=== PATIENT | female | born 1990 | race Caucasian/White ===

== ENCOUNTER 2022-04-05 19:07 | Outpatient (CLI) | payer OTHER, SELFPAY ==
[2022-04-05 21:38] LABS: Albumin* 4.9 g/dL (3.3-5.0); Chloride* 105 mmol/L (96-114)
[2022-04-05 21:39] LABS: Potassium* 3.9 mmol/L (3.6-5.1); Sodium* 141 mmol/L (135-149)
[2022-04-05 21:41] LABS: Bilirubin Total* 0.8 mg/dL (0.1-1.5); Creatinine* 0.8 mg/dL (0.5-1.5); Estimated Glomerular Filt Rate 102 ml/min
[2022-04-05 21:42] LABS: Alanine Aminotransferase* 24 U/L (4-35); Alkaline Phosphatase* 62 U/L (40-150); Aspartate Amino Transferase* 26 U/L (12-35); Blood Urea Nitrogen* 19 mg/dL (5-24); Calcium* 9.9 mg/dL (8.4-10.6); Carbon Dioxide* 28 mmol/L (20-32); Glucose* 82 mg/dL (60-115)
[2022-04-05 21:54] LABS: C Reactive Protein* < 0.5 mg/dL (0.5-1.0)
== END 2022-04-05 19:08 | disposition home or self-care (01) ==
PROVIDERS: PCP Emergency Medicine; Visit Provider Emergency Medicine
DX: R63.0 Anorexia (principal)
CPT/HCPCS: 80053; 84443; 86140

== ENCOUNTER 2022-04-19 18:26 | Outpatient (CLI) | payer OTHER, SELFPAY ==
[2022-04-19 21:57] LABS: Immature Reticulocyte Fraction 6.1 % (3.0-15.9); Reticulocyte Hemoglobin Equivi 34.1 pg (29.0-35.0); Reticulocytes Absolute 0.06 # (0.03-0.08)
[2022-04-22 05:47] LABS: Copper, Serum/Plasma 97.3 ug/dL (80.0-155.0)
[2022-04-22 10:54] LABS: Haptoglobin 78 mg/dL (30-200)
[2022-04-22 16:15] LABS: Prolactin 11.4 ng/mL (2.8-29.2)
--- NOTE | 2022-04-29 09:42 | ONC.NURNOTE ---
Addendum entered by Gaby Crocker, RN 05/03/22 09:46: Called and left message to schedule with patient again. Original Note: Referral was sent by primary care for patient to be seen by Hematology for thrombocytopenia, macrocytic anemia, and anorexia and weight loss. Patient was discussed with Dr. Pineda and she says that if patient is symptomatic, she would need to be seen prior to July/August availability. LMOM for patient to call office yesterday and today to schedule a consultation. Dr. Bae is booked out to June, but due to symptoms patient needs to be seen sooner. Patient to be scheduled on Dr. Nieves's schedule due to availability.
== END 2022-04-19 18:27 | disposition home or self-care (01) ==
PROVIDERS: PCP Emergency Medicine; Visit Provider Emergency Medicine
DX: D53.9 Nutritional anemia, unspecified (principal); N91.2 Amenorrhea, unspecified; R63.0 Anorexia
CPT/HCPCS: 82525; 83010; 83615; 84146; 85045

== ENCOUNTER 2022-05-17 18:02 | Outpatient (CLI) | payer OTHER, SELFPAY ==
--- NOTE | 2022-05-19 12:21 | ONC.NURNOTE ---
Received phone call about this patient yesterday from primary care asking if patient should be seen sooner than the planned 06/23/2022. I talked with Dr. Bae and our director today about this patient.? Dr. Bae sees no urgency to see patient, but recommended the following peripheral blood studies: cytometry BCR/ABL Qualitative test If both of these are negative, then the patient would need a bone marrow biopsy.? I have the order started based on Dr. Bernard recommendations, so we would talk with you once the above tests are completed.? She said she is fine to be seen 06/23/2022. Email was sent to primary care with the above recommendations.
== END 2022-05-17 18:03 | disposition home or self-care (01) ==
LOC: LKVREF 18:03
PROVIDERS: PCP Emergency Medicine; Visit Provider Emergency Medicine
DX: D53.9 Nutritional anemia, unspecified (principal)
CPT/HCPCS: 83516

== ENCOUNTER 2022-05-20 12:51 | Emergency (ER) | payer OTHER, SELFPAY ==
[2022-05-20 13:14] VITALS: BP 121/82; PULSE 70; RESP 20; O2SAT 100; BMI 18.8
[2022-05-20] MEDS: 0.9 % SODIUM CHLORIDE 1000 ml 1,000 ML IV (13:30)
--- NOTE | 2022-05-20 14:15 | ED.GENADULT ---
HPI - General Adult General Chief complaint: Weakness Stated complaint: Nausea, vomiting Time Seen by Provider: 05/20/22 13:15 Source: patient Mode of arrival: EMS Limitations: no limitations History of Present Illness HPI narrative: 31-year-old female coming in today complaining of nausea and vomiting that started approximately 8 hours ago. She states that she has vomited about 8 times and had multiple episodes of watery diarrhea. She states that she has abdominal cramping when she vomits otherwise no continuous abdominal pain. No chest pain. No fevers or chills. She did not go out to eat yesterday. She states that she feels very dehydrated. No sick contacts that she is aware of. No recent traveling. Does not believe she is . Related Data Home Medications Medication Instructions Recorded Confirmed clonazepam 0.5 mg tablet 0.5 mg PO QDAY PRN 04/05/22 05/17/22 hydroxyzine HCl 25 mg tablet 25 mg PO BID PRN 04/05/22 05/17/22 lamotrigine 100 mg tablet 100 mg PO QDAY 04/05/22 05/17/22 (Lamictal) bupropion HCl (smoking deter) 150 300 mg PO QDAY 05/17/22 05/17/22 mg tablet,12 hr sustained-release(smoking deterrent) valacyclovir 1 gram tablet 1,000 mg PO 05/17/22 05/17/22 Previous Rx's Medication Instructions Recorded ondansetron HCl 4 mg tablet 4 mg PO TID PRN nausea and 05/20/22 vomiting #10 tabs Allergies Allergy/AdvReac Type Severity Reaction Status Date / Time No Known Drug Allergies Allergy Verified 05/17/22 17:42 Review of Systems Status of ROS: Reports: 10 or more systems reviewed and unremarkable except as noted in History and below [facility] Medical History Amenorrhea Anorexia Depression Distal radius fracture History of varicella Macrocytic anemia PVC (premature ventricular contraction) Thrombocytopenia Unintentional weight loss Weakness Surgical History H/O cystoscopy Family History Father Bipolar disorder Aunt Bipolar disorder Sister Bipolar disorder Mother Bipolar disorder Paternal Grandfather Bipolar disorder Paternal Grandmother Bipolar disorder Brother Leukemia Social History Smoking Status: Former smoker Do you use any of these nicotine containing products: Vaping Products Second hand tobacco smoke exposure: No How often do you have a drink containing alcohol: never How often do you have six or more drinks on one occasion: Never AUDIT-C Alcohol total score: 0 Non-prescribed substance use: marijuana (any form) service: No Exam Narrative: Exam Narrative: Very thin patient who appears somewhat malnourished and uncomfortable. Alert and oriented x3. Answers questions appropriately. Affect is appropriate patient is tearful.. Thoughts are goal oriented and rational. No tangential or magical thinking noted. Patient speaks in full sentences without needing to catch her breath. HEENT: Normocephalic atraumatic. Pupils are equally round reactive to light. Extraocular muscles are intact. Conjunctivae are moist without any icterus noted. Moist mucous membranes. Posterior pharynx is normal. Neck is soft without any lymphadenopathy or thyromegaly. No masses are appreciated. Cardiovascular: Heart is regular rate and rhythm S1 and S2 are present without any murmurs. Lungs: Clear to auscultation bilaterally no wheezes rhonchi or rales are appreciated. Patient takes deep breaths without any discomfort. Abdomen: Soft and nontender nondistended with normal bowel sounds. No guarding or rebound. Skin: Well perfused without any obvious rashes. Const: Vital Signs, click to edit/add: Vital Signs - 24 hr 05/20/22 13:14 05/20/22 14:36 Pulse Rate [Pulse Oximeter] 70 77 Respiratory Rate 20 20 Blood Pressure [Le ft Upper Arm] 121/82 117/86 Pulse Oximetry 100 Oxygen Delivery Me thod Room Air Course Course Hospital Course: Patient had received Zofran and 500 mL of normal saline on the ambulance. She had no vomiting since the ambulance picked her up and brought her here. We did give her another L of normal saline and labs were drawn. Labs showing elevated lactate which did come down after a L and half of normal saline. White cell count minimally elevated, electrolytes within normal limits. Total bilirubin slightly elevated. Urinalysis showing ketones otherwise unremarkable. Patient was with us for about 3-1/2 hours during which she had 0 episodes of vomiting. She took oral Tylenol and was drinking water, tolerated both of those things well. Vital Signs Vital signs: Initial Vital Signs Temperature Source Temporal Artery Scan 05/20/22 13:14 Pulse Rate 70 05/20/22 13:14 Pulse Rhythm 05/20/22 13:14 Respiratory Rate 20 05/20/22 13:14 Blood Pressure 121/82 05/20/22 13:14 Blood Pressure Mean 95 05/20/22 13:14 Blood Pressure Position Supine 05/20/22 13:14 Pulse Oximetry 100 05/20/22 13:14 Oxygen Delivery Method 05/20/22 13:14 Vital Signs Pulse Rate 70 05/20/22 13:14 Respiratory Rate 20 05/20/22 13:14 Blood Pressure 121/82 05/20/22 13:14 Pulse Oximetry 100 05/20/22 13:14 Oxygen Delivery Method 05/20/22 13:14 Pulse Rate 77 05/20/22 14:36 Respiratory Rate 20 05/20/22 14:36 Blood Pressure 117/86 05/20/22 14:36 Pulse Oximetry 100 05/20/22 13:14 Oxygen Delivery Method 05/20/22 13:14 Medical Decision Making MDM Narrative Medical decision making narrative: 31-year-old female with gastroenteritis. We discussed continued hydration with small amounts of fluid frequently throughout the day. Discussed reasons for follow-up. Patient was agreeable had no other questions. Medical Records Medical records reviewed: Yes I reviewed the patient's medical records Lab Data Lab results reviewed: Yes I reviewed the patient's lab results Labs: Lab Results 05/20/22 05/20/22 05/20/22 Range/Units 14:50 14:50 14:50 WBC 12.85 H (4.50-11.00) K/uL RBC 3.56 L (4.00-5.20) m/uL Hgb 12.5 (12.0-16.0) gm/dL Hct 36.9 (33.0-51.0) % MCV 104 H (80-100) fL MCH 35 H (26-34) pg MCHC 34 (32-36) gm/dL RDW Coeff of Gustavo 12.5 (11.5-15.5) % Plt Count 119 L (140-440) K/uL Neut % (Auto) 95.1 H (42.0-72.0) % Lymph % (Auto) 1.6 L (20-44) % [place] % (Auto) 3.0 (0.0-11.0) % Eos % (Auto) 0.0 (0.0-7.0) % Baso % (Auto) 0.1 (0.0-3.0) % Neut # (Auto) 12.20 H (1.7-7.0) K/uL Lymph # (Auto) 0.20 L (0.90-2.90) K/uL [place] # (Auto) 0.40 (0.00-0.90) K/UL Eos # (Auto) 0.00 (0.00-0.50) K/uL Baso # (Auto) 0.00 (0.00-0.30) K/uL Sodium Cancelled Potassium Cancelled Chloride Cancelled Carbon Dioxide Cancelled BUN Cancelled Creatinine Cancelled Estimated Creat Clear Cancelled Estimated GFR Cancelled Glucose Cancelled Lactate (0.5-1.9) mmol/L Calcium Cancelled Total Bilirubin (0.1-1.5) mg/dL Direct Bilirubin (0.0-0.5) mg/dL AST (12-35) U/L ALT (4-35) U/L Alkaline Phosphatase (40-150) U/L Total Protein (6.0-8.3) g/dL Albumin (3.3-5.0) g/dL Lipase (23-300) U/L HCG, Qual Negative (Negative) Urine Color Yellow (Yellow) Urine Appearance Turbid A (Clear) Urine pH 8.5 (5.0-8.5) Ur Specific [place] 1.020 (1.000-1.030) Urine Protein Negative (Negative) Urine Glucose (UA) Negative (Negative) Urine Ketones 3+ A (Negative) Urine Blood Negative (Negative) Urine Nitrite Negative (Negative) Urine Bilirubin Negative (Negative) Urine Urobilinogen 0.2 (0.2-1.0) Ur Leukocyte Esterase Negative (Negative) Urine RBC 0-2 (0-2) Urine WBC 2-5 (0-5) Ur Squamous Epith Cells Few (None-Few) Urine Bacteria Few A (None) Ethyl Alcohol (0.01-0.03) % 05/20/22 05/20/22 05/20/22 Range/Units 14:50 14:50 15:24 WBC (4.50-11.00) K/uL RBC (4.00-5.20) m/uL Hgb (12.0-16.0) gm/dL Hct (33.0-51.0) % MCV (80-100) fL MCH (26-34) pg MCHC (32-36) gm/dL RDW Coeff of Gustavo (11.5-15.5) % Plt Count (140-440) K/uL Neut % (Auto) (42.0-72.0) % Lymph % (Auto) (20-44) % [place] % (Auto) (0.0-11.0) % Eos % (Auto) (0.0-7.0) % Baso % (Auto) (0.0-3.0) % Neut # (Auto) (1.7-7.0) K/uL Lymph # (Auto) (0.90-2.90) K/uL [place] # (Auto) (0.00-0.90) K/UL Eos # (Auto) (0.00-0.50) K/uL Baso # (Auto) (0.00-0.30) K/uL Sodium 138 Potassium 3.7 Chloride 108 Carbon Dioxide 20 BUN 23 Creatinine Estimated Creat Clear Estimated GFR Glucose 123 H Lactate 2.9 H 1.9 (0.5-1.9) mmol/L Calcium 8.5 Total Bilirubin 2.0 H (0.1-1.5) mg/dL Direct Bilirubin 0.1 (0.0-0.5) mg/dL AST 27 (12-35) U/L ALT 50 H (4-35) U/L Alkaline Phosphatase 71 (40-150) U/L Total Protein 6.5 (6.0-8.3) g/dL Albumin 4.4 (3.3-5.0) g/dL Lipase 16 L (23-300) U/L HCG, Qual (Negative) Urine Color (Yellow) Urine Appearance (Clear) Urine pH (5.0-8.5) Ur Specific [place] (1.000-1.030) Urine Protein (Negative) Urine Glucose (UA) (Negative) Urine Ketones (Negative) Urine Blood (Negative) Urine Nitrite (Negative) Urine Bilirubin (Negative) Urine Urobilinogen (0.2-1.0) Ur Leukocyte Esterase (Negative) Urine RBC (0-2) Urine WBC (0-5) Ur Squamous Epith Cells (None-Few) Urine Bacteria (None) Ethyl Alcohol < 0.01 L (0.01-0.03) % Discharge Plan Discharge Clinical Impression: Gastroenteritis, Weakness Patient Disposition: Home, Self-Care Condition: Improved Additional Instructions: Continue to drink small amounts of water frequently throughout the day. I have sent home with Ken which will help with nausea if needed. Follow-up if you are getting worse instead of better. Prescriptions: New ondansetron HCl 4 mg tablet 4 mg PO TID PRN (Reason: nausea and vomiting) Qty: 10 0RF No Action lamotrigine [Lamictal] 100 mg tablet 100 mg PO QDAY hydroxyzine HCl 25 mg tablet 25 mg PO BID PRN clonazepam 0.5 mg tablet 0.5 mg PO QDAY PRN bupropion HCl (smoking deter) 150 mg tablet extended release 12 hr 300 mg PO QDAY valacyclovir 1 gram tablet 1,000 mg PO Follow Up/Referrals: Nneka Ghosh MD [Primary Care Provider] - Stand Alone Forms: [employer] Info Instructions
[2022-05-20 14:36] VITALS: BP 117/86; PULSE 77; RESP 20
[2022-05-20 14:59] LABS: Lactate* 2.9 mmol/L (0.5-1.9)
[2022-05-20 15:40] LABS: Basophils Percent Auto 0.1 % (0.0-3.0); Hematocrit 36.9 % (33.0-51.0); Hemoglobin* 12.5 gm/dL (12.0-16.0); Immature Granulocytes Pct Auto 0.2 %; Lymphocytes Percent Auto 1.6 % (20-44); Mean Corpuscular HGB Conc 34 gm/dL (32-36); Mean Corpuscular Hemoglobin 35 pg (26-34); Mean Corpuscular Volume 104 fL (80-100); Neutrophils Percent Auto 95.1 % (42.0-72.0); Platelet Count* 119 K/uL (140-440); RDW Coefficient of Variation % 12.5 % (11.5-15.5); Red Blood Count 3.56 m/uL (4.00-5.20); White Blood Count* 12.85 K/uL (4.50-11.00)
[2022-05-20 15:41] LABS: Appearance Urine Turbid (Clear); Bilirubin Urine Negative (Negative); Blood Urine Negative (Negative); Color Urine Yellow (Yellow); Glucose Urine Negative (Negative); Ketones Urine 3+ (Negative); Leukocyte Esterase Urine Negative (Negative); Nitrite Urine Negative (Negative); Protein Urine Negative (Negative); Urobilinogen Urine 0.2 (0.2-1.0); pH Urine 8.5 (5.0-8.5)
[2022-05-20 15:42] LABS: HCG Qualitative* Negative (Negative)
[2022-05-20 15:50] LABS: Bacteria Urine Few; RBC Urine 0-2 (0-2); Squamous Epithelial Cell Urine Few (None-Few)
[2022-05-20 15:55] LABS: Slide Review Reflex No
[2022-05-20] MEDS: ACETAMINOPHEN 500 MG TABLET 1000 MG PO (15:56)
[2022-05-20 16:03] LABS: Albumin* 4.4 g/dL (3.3-5.0); Chloride* 108 mmol/L (96-114); Potassium* 3.7 mmol/L (3.6-5.1); Sodium* 138 mmol/L (135-149)
[2022-05-20 16:05] LABS: Bilirubin Direct* 0.1 mg/dL (0.0-0.5)
[2022-05-20 16:06] LABS: Alanine Aminotransferase* 50 U/L (4-35); Alkaline Phosphatase* 71 U/L (40-150); Aspartate Amino Transferase* 27 U/L (12-35); Blood Urea Nitrogen* 23 mg/dL (5-24); Calcium* 8.5 mg/dL (8.4-10.6); Carbon Dioxide* 20 mmol/L (20-32); Glucose* 123 mg/dL (60-115); Lipase* 16 U/L (23-300); Total Protein* 6.5 g/dL (6.0-8.3)
[2022-05-20 16:09] LABS: Ethanol* < 0.01 % (0.01-0.03)
[2022-05-20 16:15] LABS: Lactate* 1.9 mmol/L (0.5-1.9)
[2022-05-20 16:43] LABS: PCR FLU A Negative PCR FLU A (Negative); PCR FLU B Negative PCR FLU B (Negative)
[2022-05-20 16:44] LABS: Erythrocyte SedimentationRate* 5 mm/hr (2-20)
[2022-05-20 17:08] LABS: Creatinine* 0.6 mg/dL (0.5-1.5); Est. Creatinine Clearance* 110.94; Estimated Glomerular Filt Rate 124 ml/min
[2022-05-20 19:01] LABS: SARS PCR* Negative SARS-CoV-2 (Negative)
== END 2022-05-20 16:47 | disposition home or self-care (01) ==
PROVIDERS: Emergency Provider Family Medicine; PCP Emergency Medicine
DX: K52.9 Noninfective gastroenteritis and colitis, unspecified (principal)
CPT/HCPCS: 36415; 80048; 80076; 81001; 82077; 83605; 83690; 84703; 85025; 85651; 87086; 87631; 99283; 99284; 99285; A0425; A0427; A9270; J7030

== ENCOUNTER 2022-06-14 16:28 | Outpatient (CLI) | payer OTHER, SELFPAY ==
[2022-06-22 18:39] LABS: Qual BCR Result Not Detected; Qual BCR Source Not Provided
== END 2022-06-14 16:29 | disposition home or self-care (01) ==
PROVIDERS: PCP Emergency Medicine; Visit Provider Emergency Medicine
DX: D53.9 Nutritional anemia, unspecified (principal); D61.818 Other pancytopenia
CPT/HCPCS: 88184

== ENCOUNTER 2022-08-01 06:31 | Outpatient (CLI) | payer OTHER, SELFPAY ==
--- NOTE | 2022-08-01 06:30 | W.ANESCHARGE ---
Anesthesia Charges Start Date/Time Anesthesia Start Date: 08/01/22 Anesthesia Start Time: 08:29 Stop Date/Time Anesthesia Stop Date: 08/01/22 Anesthesia Stop Time: 08:46
[2022-08-01 07:04] VITALS: BMI 17.6
[2022-08-01 07:13] VITALS: BP 103/72; PULSE 72; RESP 16; O2SAT 99
[2022-08-01 08:42] LABS: Basophils Percent Auto 0.8 % (0.0-3.0); Hematocrit 35.1 % (33.0-51.0); Hemoglobin* 11.9 gm/dL (12.0-16.0); Lymphocytes Percent Auto 33.2 % (20-44); Mean Corpuscular HGB Conc 34 gm/dL (32-36); Mean Corpuscular Hemoglobin 35 pg (26-34); Mean Corpuscular Volume 104 fL (80-100); Monocytes Percent Auto 6.5 % (0.0-11.0); Neutrophils Percent Auto 57.5 % (42.0-72.0); Platelet Count* 117 K/uL (140-440); RDW Coefficient of Variation % 11.8 % (11.5-15.5); Red Blood Count 3.39 m/uL (4.00-5.20); Reticulocyte Hemoglobin Equivi 33.8 pg (29.0-35.0); Reticulocyte Percent 1.8 % (0.5-2.0); Reticulocytes Absolute 0.06 # (0.03-0.08); White Blood Count* 2.47 K/uL (4.50-11.00)
[2022-08-01 08:44] VITALS: BP 101/62; PULSE 84; RESP 16; O2SAT 99
[2022-08-01 08:45] LABS: Slide Review Reflex No
[2022-08-01 08:59] VITALS: BP 116/84; PULSE 83; RESP 16; O2SAT 100
[2022-08-01 09:10] VITALS: BP 102/71; PULSE 68; RESP 16; O2SAT 100
--- NOTE | 2022-08-01 09:13 | W.ANESCHARGE ---
Anesthesia Charges Start Date/Time Anesthesia Start Date: 08/01/22 Anesthesia Start Time: 08:29 Stop Date/Time Anesthesia Stop Date: 08/01/22 Anesthesia Stop Time: 08:46
[2022-08-01 09:19] VITALS: BP 102/71; PULSE 71; RESP 16; O2SAT 100
[2022-08-01 09:26] VITALS: BP 108/75; PULSE 79; RESP 16; O2SAT 100
== END 2022-08-01 09:46 | disposition home or self-care (01) ==
LOC: OP CLINIC 06:32
PROVIDERS: PCP Emergency Medicine; Visit Provider Internal Medicine Hematology & Oncology
DX: D61.818 Other pancytopenia (principal); D69.6 Thrombocytopenia, unspecified
CPT/HCPCS: 01112; 36415; 38222; 85025; 85045; 88237; 88264; 88305; 88311; 88313; 88341; 88342; 88360; J1644; J2001; J2704

== ENCOUNTER 2022-11-29 08:30 | Outpatient (RCR) | payer OTHER, SELFPAY ==
[2022-06-23 15:50] LABS: Basophils Percent Auto 0.8 % (0.0-3.0); Eosinophils Percent Auto 1.1 % (0.0-7.0); Hematocrit 37.8 % (33.0-51.0); Hemoglobin* 12.5 gm/dL (12.0-16.0); Lymphocytes Percent Auto 27.7 % (20-44); Mean Corpuscular HGB Conc 33 gm/dL (32-36); Mean Corpuscular Hemoglobin 35 pg (26-34); Mean Corpuscular Volume 106 fL (80-100); Monocytes Percent Auto 6.4 % (0.0-11.0); Platelet Count* 145 K/uL (140-440); Red Blood Count 3.56 m/uL (4.00-5.20); White Blood Count* 3.61 K/uL (4.50-11.00)
[2022-06-23 15:53] LABS: Slide Review Reflex No
[2022-06-23 16:04] LABS: Albumin* 4.8 g/dL (3.3-5.0); Chloride* 103 mmol/L (96-114)
[2022-06-23 16:05] LABS: Sodium* 139 mmol/L (135-149)
[2022-06-23 16:07] LABS: Alanine Aminotransferase* 42 U/L (4-35); Alkaline Phosphatase* 51 U/L (40-150); Aspartate Amino Transferase* 30 U/L (12-35); Bilirubin Total* 0.9 mg/dL (0.1-1.5); Blood Urea Nitrogen* 16 mg/dL (5-24); Carbon Dioxide* 31 mmol/L (20-32); Creatinine* 0.6 mg/dL (0.5-1.5); Estimated Glomerular Filt Rate 124 ml/min; Glucose* 94 mg/dL (60-115); Total Protein* 7.3 g/dL (6.0-8.3)
[2022-06-23 16:08] LABS: Calcium* 9.3 mg/dL (8.4-10.6)
[2022-06-23 16:57] LABS: Vitamin B12* 845 pg/mL (243-894)
[2022-06-23 17:10] LABS: Thyroid Stimulating Hormone* 0.863 uIU/mL (0.270-4.20)
[2022-06-26 02:57] LABS: Folate, Serum >22.3 ng/mL (>=5.9)
[2022-06-27 12:06] LABS: MMA Vitamin B12 Status 0.12 umol/L (0.00-0.40)
[2022-06-28 02:14] LABS: Albumin 4.63 g/dL (3.75-5.01); Alpha 1 Globulin 0.28 g/dL (0.19-0.46); Alpha 2 Globulin 0.55 g/dL (0.48-1.05); Immunofixation IFE Done; Immunoglobulin A 35 mg/dL (68-408); Immunoglobulin G 644 mg/dL (768-1632); Immunoglobulin M 53 mg/dL (35-263); Kappa/Lambda Light Chain Ratio 1.11 (0.26-1.65); Lambda Qnt Free Light Chains 7.57 mg/L (5.71-26.30); Total Protein, Serum 6.6 g/dL (6.3-8.2)
--- NOTE | 2022-07-11 14:35 | ONC.NURNOTE ---
Addendum entered by Gaby Crocker RN 07/19/22 11:01: Patient is scheduled for biopsy with sedation on 08/01/2022, endoscopy notes that if patient comes with no boom truck driver - will do without. Patient aware. [employer]rig[employer] Engineer called patient to schedule her follow up on 08/16/2022, LMOM to call office back. Addendum entered by Gaby Crocker RN 07/14/22 08:46: Patient was given options for driving and she opted out of sedation and will have bone marrow biopsy at a later date without sedation as she did not request 07/21/2022 off. She will call endoscopy to schedule at a later date. Endoscopy aware that patient will come for biopsy WITHOUT sedation and that she will call to schedule this later, that 07/21 no longer works for patient. They will contact [facility] so that provider follow up can be scheduled. Original Note: Patient was recommended to have a bone marrow biopsy following her appointment with Dr. Bae. Endo called patient to set her up for 07/21/2022, and when they notified her that she would need a boom truck driver d/t the use of sedation patient started crying loudly on the phone and told them she would not be able to then have it. Patient then called the [facility] to talk to life insurance underwriter and was given the option of getting biopsy without sedation if unable to find boom truck driver. Patient talked about using [employer] and them not driving from [place] to [place]. She was encouraged to see if family or friends would be able to help her and she started sobbing on phone about working with someone to help with family and friend relationships, and she does not have anyone to help. She does not want to have the biopsy without sedation, as she was told by her brother that this is very painful. Patient was asking about the necessity of having this test and she was told what Dr. Bae's note said. She was given the following options: 1. Nursing will work with SW to see if able to find a ride option for her to keep the sedation in place. 2. Patient can have biopsy without sedation. 3. If nursing is unable to find a ride for patient, nursing will talk with Dr. Bae to determine if what she needs has been found in the labs that were completed - as patient is hesitant to have bone marrow biopsy without sedation.
--- NOTE | 2022-07-13 10:35 | ONC.NURNOTE ---
LATE ENTRY Dr. Bae reviewed lab work and verbal given to proceed with bone marrow since all other labs negative so far. Patient called and told a bone marrow would be needed
--- NOTE | 2022-07-25 16:27 | ONC.NURNOTE ---
Missed call from pt to schedule Dr. Pineda f/u appt on 08/16 (~2 wks p biopsy); LM for pt to call back.
--- NOTE | 2022-08-02 12:17 | ONC.NURNOTE ---
Patient called and states that she had her bone marrow biopsy yesterday and was informed not to lift over 10 pounds. She was at work today and lifted a child about 40-50 pounds and now has lower back pain. She called the surgery center and was told to contact [facility]. Recommendations given to be seen by primary or urgent care to determine source/cause of pain and possible treatment options. Patient to be seen in clinic 08/16/2022.
[2022-11-18 08:39] LABS: Basophils Percent Auto 0.4 % (0.0-3.0); Eosinophils Percent Auto 3.3 % (0.0-7.0); Hematocrit 39.2 % (33.0-51.0); Hemoglobin* 12.7 gm/dL (12.0-16.0); Lymphocytes Percent Auto 37.3 % (20-44); Mean Corpuscular HGB Conc 32 gm/dL (32-36); Mean Corpuscular Hemoglobin 34 pg (26-34); Mean Corpuscular Volume 106 fL (80-100); Monocytes Percent Auto 7.8 % (0.0-11.0); Neutrophils Percent Auto 51.2 % (42.0-72.0); Platelet Count* 123 K/uL (140-440); RDW Coefficient of Variation % 11.4 % (11.5-15.5); Red Blood Count 3.71 m/uL (4.00-5.20); Reticulocyte Hemoglobin Equivi 33.3 pg (29.0-35.0); Reticulocyte Percent 1.7 % (0.5-2.0); Reticulocytes Absolute 0.06 # (0.03-0.08); White Blood Count* 2.44 K/uL (4.50-11.00)
[2022-11-18 08:41] LABS: Slide Review Reflex No
[2022-11-18 08:51] LABS: Albumin* 4.5 g/dL (3.3-5.0)
[2022-11-18 08:54] LABS: Alkaline Phosphatase* 49 U/L (40-150); Aspartate Amino Transferase* 36 U/L (12-35); Total Protein* 6.9 g/dL (6.0-8.3)
[2022-11-18 08:55] LABS: Alanine Aminotransferase* 56 U/L (4-35)
[2022-11-18 09:32] LABS: Ferritin* 79.2 ng/mL (6.24-137.0)
[2022-11-18 09:48] LABS: Vitamin B12* > 1000 pg/mL (243-894)
[2022-11-19 22:45] LABS: Folate, Serum >22.3 ng/mL (>=5.9)
[2022-11-20 08:58] LABS: Copper, Serum/Plasma 101.7 ug/dL (80.0-155.0)
== END 2022-12-20 23:59 | disposition home or self-care (01) ==
LOC: CCIC 08:30
PROVIDERS: Internal Medicine Hematology & Oncology; PCP Emergency Medicine; Referring Provider Emergency Medicine; Visit Provider Internal Medicine Hematology & Oncology
DX: D61.818 Other pancytopenia (principal); D53.9 Nutritional anemia, unspecified
CPT/HCPCS: 36415; 80053; 80076; 82525; 82607; 82728; 82746; 82784; 83520; 84155; 84165; 84443; 85025; 85045; 86334; 99202; 99203; 99204; 99212; 99213; 99214; 99215

== ENCOUNTER 2023-03-22 08:37 | Outpatient (CLI) | payer OTHER, SELFPAY | END 2023-03-22 08:38 | disposition home or self-care (01) | PROVIDERS: PCP Emergency Medicine; Visit Provider Emergency Medicine | DX: Z00.00 Encounter for general adult medical examination without abnormal findings (principal); Z13.6 Encounter for screening for cardiovascular disorders; Z13.1 Encounter for screening for diabetes mellitus | CPT/HCPCS: 80061; 82947 ==

== ENCOUNTER 2024-01-24 08:00 | Outpatient (RCR) | payer OTHER, SELFPAY ==
[2023-08-01 10:01] LABS: Basophils Percent Auto 0.4 % (0.0-3.0); Eosinophils Percent Auto 4.1 % (0.0-7.0); Hematocrit 34.3 % (33.0-51.0); Hemoglobin* 11.1 gm/dL (12.0-16.0); Lymphocytes Percent Auto 32.2 % (20-44); Mean Corpuscular HGB Conc 32 gm/dL (32-36); Mean Corpuscular Hemoglobin 34 pg (26-34); Mean Corpuscular Volume 104 fL (80-100); Monocytes Percent Auto 7.9 % (0.0-11.0); Neutrophils Percent Auto 55.4 % (42.0-72.0); Platelet Count* 119 K/uL (140-440); RDW Coefficient of Variation % 11.8 % (11.5-15.5); White Blood Count* 2.67 K/uL (4.50-11.00)
[2023-08-01 10:09] LABS: Slide Review Reflex No
[2023-08-01 10:24] LABS: Iron* 165 ug/dL (37-170)
[2023-08-01 10:33] LABS: Percent Iron Saturation 78 % (20-50); Total Iron Binding Capacity 211 ug/dL (265-497)
[2023-08-01 12:05] LABS: Vitamin B12* > 1000 pg/mL (243-894)
[2024-01-24 08:11] LABS: Basophils Percent Auto 0.9 % (0.0-3.0); Eosinophils Percent Auto 6.6 % (0.0-7.0); Hematocrit 36.5 % (33.0-51.0); Hemoglobin* 11.9 gm/dL (12.0-16.0); Lymphocytes Percent Auto 32.4 % (20-44); Mean Corpuscular HGB Conc 33 gm/dL (32-36); Mean Corpuscular Hemoglobin 34 pg (26-34); Mean Corpuscular Volume 105 fL (80-100); Monocytes Percent Auto 8.1 % (0.0-11.0); Platelet Count* 132 K/uL (140-440); RDW Coefficient of Variation % 11.7 % (11.5-15.5); Red Blood Count 3.47 m/uL (4.00-5.20); White Blood Count* 3.33 K/uL (4.50-11.00)
[2024-01-24 08:15] LABS: Slide Review Reflex No
[2024-01-24 08:30] LABS: Iron* 203 ug/dL (37-170)
[2024-01-24 08:40] LABS: Percent Iron Saturation 91 % (20-50); Total Iron Binding Capacity 224 ug/dL (265-497)
[2024-01-24 09:22] LABS: Vitamin B12* > 1000 pg/mL (243-894)
[2024-01-25 19:41] LABS: Folate, Serum >22.3 ng/mL (>=5.9)
== END 2024-01-28 23:59 | disposition home or self-care (01) ==
LOC: CCIC 08:00
PROVIDERS: PCP Emergency Medicine; Referring Provider Emergency Medicine; Visit Provider Internal Medicine Hematology & Oncology
DX: D61.818 Other pancytopenia (principal)
CPT/HCPCS: 36415; 82607; 82728; 82746; 83540; 83550; 85025; 99213; 99214; G0463

== ENCOUNTER 2024-02-06 08:16 | Outpatient (RCR) | payer OTHER, SELFPAY | END 2024-08-04 23:59 | disposition home or self-care (01) | LOC: CCIC 08:16 | PROVIDERS: PCP Emergency Medicine; Referring Provider Emergency Medicine; Visit Provider Internal Medicine Hematology & Oncology | DX: D61.818 Other pancytopenia (principal); D53.9 Nutritional anemia, unspecified | CPT/HCPCS: 99213; G0463 ==

== ENCOUNTER 2024-04-14 10:33 | Outpatient (CLI) | payer OTHER, SELFPAY | END 2024-04-14 10:34 | disposition home or self-care (01) | PROVIDERS: PCP Emergency Medicine; Visit Provider Nurse Practitioner | DX: J02.9 Acute pharyngitis, unspecified (principal) | CPT/HCPCS: 87070 ==

== ENCOUNTER 2024-06-18 08:19 | Outpatient (CLI) | payer OTHER, SELFPAY | END 2024-06-18 08:20 | disposition home or self-care (01) | PROVIDERS: PCP Emergency Medicine; Visit Provider Emergency Medicine | DX: N92.0 Excessive and frequent menstruation with regular cycle (principal); N30.10 Interstitial cystitis (chronic) without hematuria | CPT/HCPCS: 80048; 84443 ==

== ENCOUNTER 2024-06-19 07:01 | Outpatient (CLI) | payer OTHER, SELFPAY ==
--- NOTE | 2024-06-19 07:15 | CRLHL7_ITS ---
For Patients: As a result of the Century Cures Act, medical imaging exams and procedure reports are released immediately into your electronic medical record. You may view this report before your referring provider. If you have questions, please contact your health care provider. INDICATION: Severe dysmenorrhea, menorrhagia COMPARISON: none TECHNIQUE: 2D brasher scale and color Doppler images were acquired of the pelvis using a transabdominal and transvaginal approach. FINDINGS: Sonographic images demonstrate a normal size and smooth outer contour of the uterus. Uterus measures 8.5 cm in length by 3.8 cm in AP diameter by 4.6 cm in transverse dimension. The myometrium has a normal uniform echotexture. The endometrial lining measures 12 mm in composite thickness. The right ovary measures 4.1 x 2.4 x 3.8 cm in size and the left ovary measures 2.7 x 1.8 x 2.9 cm. The ovaries demonstrate normal arterial and venous blood flow on color Doppler analysis. There are no suspicious fluid collections within the cul-de-sac. Simple cyst right ovary measures 1.9 cm. IMPRESSION: Endometrial thickness 12 millimeters. No endometrial fluid. No uterine fibroid. Dictated by Bernardo Cleary MD @ 06/19/2024 8:46:58 AM (Electronically Signed)
== END 2024-06-19 07:02 | disposition home or self-care (01) ==
LOC: US 07:02
PROVIDERS: PCP Emergency Medicine; Visit Provider Emergency Medicine
DX: N94.6 Dysmenorrhea, unspecified (principal); N83.291 Other ovarian cyst, right side; R93.89 Abnormal findings on diagnostic imaging of other specified body structures; N92.0 Excessive and frequent menstruation with regular cycle
CPT/HCPCS: 76830; 76856; 93976

== ENCOUNTER 2024-07-30 08:35 | Outpatient (CLI) | payer OTHER, SELFPAY | END 2024-07-30 08:36 | disposition home or self-care (01) | LOC: NFLDREF 07-31 03:09 | PROVIDERS: PCP Emergency Medicine; Referring Provider Emergency Medicine; Visit Provider Internal Medicine Hematology & Oncology | DX: D61.818 Other pancytopenia (principal); D69.6 Thrombocytopenia, unspecified; D53.9 Nutritional anemia, unspecified | CPT/HCPCS: 82525; 82607; 82728; 82746; 83540; 83550 ==

== ENCOUNTER 2025-01-22 08:30 | Outpatient (RCR) | payer OTHER, SELFPAY ==
[2024-09-04 08:02] LABS: Iron* 248 ug/dL (37-170)
[2024-09-04 08:11] LABS: Total Iron Binding Capacity 232 ug/dL (265-497)
[2024-09-04 08:18] LABS: Percent Iron Saturation 107 % (20-50)
[2024-11-05 08:04] LABS: Hematocrit 32.6 % (33.0-51.0); Hemoglobin* 10.7 gm/dL (12.0-16.0); Immature Granulocytes Abs Auto 0.00 K/uL (0.00-0.30); Immature Granulocytes Pct Auto 0.0 %; Mean Corpuscular HGB Conc 33 gm/dL (32-36); Mean Corpuscular Hemoglobin 35 pg (26-34); Mean Corpuscular Volume 105 fL (80-100); RDW Coefficient of Variation % 11.6 % (11.5-15.5); Red Blood Count 3.10 m/uL (4.00-5.20); White Blood Count* 3.79 K/uL (4.50-11.00)
[2024-11-05 08:10] LABS: Lymphocytes Absolute Auto 1.60 K/uL (0.90-2.90)
[2024-11-05 08:11] LABS: Slide Review Reflex No
[2024-11-05 08:38] LABS: Iron* 212 ug/dL (37-170)
[2024-11-05 08:48] LABS: Percent Iron Saturation 93 % (20-50); Total Iron Binding Capacity 227 ug/dL (265-497)
[2024-11-05 09:00] LABS: Vitamin B12* 955 pg/mL (243-894)
[2024-11-06 12:57] LABS: Folate, Serum >22.3 ng/mL (>=5.9)
--- NOTE | 2024-11-06 15:05 | ONC.NURNOTE ---
Dr. Pineda reviewed patient's lab and patient was called and instructed to NOT do any phlebotomies and NOT to take any iron supplements Patient verbalizes understanding and appt made for end of December labs and January MD follow up
[2025-01-09 08:05] LABS: Hematocrit 32.3 % (33.0-51.0); Hemoglobin* 10.8 gm/dL (12.0-16.0); Immature Granulocytes Abs Auto 0.00 K/uL (0.00-0.30); Immature Granulocytes Pct Auto 0.0 %; Mean Corpuscular HGB Conc 33 gm/dL (32-36); Mean Corpuscular Hemoglobin 35 pg (26-34); Mean Corpuscular Volume 104 fL (80-100); RDW Coefficient of Variation % 11.4 % (11.5-15.5); Red Blood Count 3.10 m/uL (4.00-5.20); White Blood Count* 2.76 K/uL (4.50-11.00)
[2025-01-09 08:35] LABS: Lymphocytes Absolute Auto 0.90 K/uL (0.90-2.90); Slide Review Reflex No
[2025-01-09 08:42] LABS: Iron* 196 ug/dL (37-170)
[2025-01-09 08:52] LABS: Percent Iron Saturation 79 % (20-50); Total Iron Binding Capacity 249 ug/dL (265-497)
== END 2025-02-02 23:59 | disposition home or self-care (01) ==
LOC: CCIC 08:30
PROVIDERS: PCP Emergency Medicine; Referring Provider Emergency Medicine; Visit Provider Internal Medicine Hematology & Oncology
DX: D61.818 Other pancytopenia (principal); E83.110 Hereditary hemochromatosis; D53.9 Nutritional anemia, unspecified; F19.11 Other psychoactive substance abuse, in remission
CPT/HCPCS: 36415; 81256; 82607; 82728; 82746; 83540; 83550; 85025; 99213; 99214; G0463